=== PATIENT | female | born 1985 | race Caucasian/White ===

== ENCOUNTER 2017-02-15 13:12 | Observation (INO) | payer MEDICAID, OTHER ==
[~2017-02-15] VITALS: Ht 167.6 cm; Wt 86.0 kg
[~2017-02-15 13:12] MED LIST: IBUP600 PO; KEPP1000 PO; OXYC1SOL5 PO
[2017-02-15 13:14] VITALS: BP 167/75; PULSE 90; RESP 20; TEMP 98; O2SAT 99
--- NOTE | 2017-02-15 14:40 | PD ---
Physical Exam Date Seen by Provider: Feb 15, 2017 Time Seen by Provider: 14:38 Narrative 31 YOWF WITH C/O L FLANK PAIN FOR 6 DAYS. NO N/V. NO F/C. NO URINARY PROBLEMS. H /O ANEURISM AND APHAGIA VSS AWAITING BED PLACEMENT Data Data Last Documented VS Vital Signs Date Time Temp Pulse Resp B/P Pulse Ox O2 Delivery O2 Flow Rate FiO2 02/15/17 13:14 98.0 90 20 167/75 99 Room Air [facility] Medical Record Reviewed: Yes Supervised Visit with JUAN CARLOS: Yes Duy De La Paz Feb 15, 2017 14:40
[2017-02-15] MEDS ORDERED: SODIUM CHLORIDE 0.9% FLUSH 10 ML FLUSH IV FLUSH PRN ×2 (20:00→23:00)
--- NOTE | 2017-02-15 20:07 | PD ---
HPI Chief Complaint: Abdominal Pain Time Seen by Provider: 20:00 Travel History International Travel<30 days: No Contact w/Intl Traveler<30days: No Traveled to known affect area: No History of Present Illness HPI Patient is a 31-year-old female presenting to the urgency department with her mother for evaluation of left lower quadrant abdominal pain as well as left lower wisdom tooth pain and a cough. Patient has a history of a subarachnoid hemorrhage with aneurysm clipping, patient is aphasic, she is able to speak some but is writing things down. Her mother is also present to give history of chief complaint. Patient reports feeling very fatigued, stating she is not sleeping. She states the pain in her left lower quadrant has been ongoing for several days, she denies any nausea, vomiting, diarrhea, chest pain, shortness of breath or headache. She does report a dry cough and nasal congestion. Patient states that she has been out of her Xanax since April of last year, this helped her to sleep. 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) Psychiatric: No Reproductive: No Respiratory: No Immunizations Current: No Migraines: No Seizures: Yes Sleep Apnea: No Thyroid Disease: No Ulcer: No ?: Not LMP: 02/01/17 Past Surgical History Abdominal Surgery: No Cardiac Surgery: No Ear Surgery: No Endocrine Surgery: No Eye Surgery: No Genitourinary Surgery: No Gynecologic Surgery: Yes (tubal ligation) Neurologic Surgery: Yes (aneurysm clipping) Oral Surgery: No Thoracic Surgery: No Other Surgery: Yes (craniotomy ) Social History Alcohol Use: No Tobacco Use: Yes (10 cigarettes per day, since age 12, trying to quit) Substance Use: Yes (HX;IV DRUG ABUSE ) Allergies-Medications (Allergen,Severity, Reaction): Coded Allergies: *MDRO Multi-Drug Resistant Organism (Verified Adverse Reaction, Unknown, ) 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) Reported Meds & Prescriptions Reported Meds & Active Scripts Active No Active Prescriptions or Reported Medications Review of Systems Except as stated in HPI: all other systems reviewed are Neg General / Constitutional: Positive: Other (fatigue), No: Fever, Chills HENT: Positive: Congestion, Dental Difficulties, No: Headaches, Sore Throat Cardiovascular: No: Chest Pain or Discomfort Respiratory: Positive: Cough, No: Shortness of Breath, Wheezing Gastrointestinal: Positive: Abdominal Pain (LLQ), No: Nausea, Vomiting, Diarrhea Genitourinary: No: Dysuria, Pelvic Pain, Flank Pain Musculoskeletal: No: Myalgias Neurologic: Positive: Slurred Speech (CHRONIC DUE TO HX OF CVA), No: Weakness , Dizziness, Syncope Physical Exam Narrative GENERAL: Well-developed, well-nourished, alert female. Resting comfortably in no acute distress. SKIN: Warm and dry. HEAD: Atraumatic. Normocephalic. EYES: Pupils equal and round. No scleral icterus. No injection or drainage. ENT: No nasal bleeding or discharge. Mucous membranes pink and moist. NECK: Trachea midline. No JVD. CARDIOVASCULAR: Regular rate and rhythm. RESPIRATORY: No accessory muscle use. Clear to auscultation. Breath sounds equal bilaterally. GASTROINTESTINAL: Abdomen soft, tender to palpation left lower quadrant, nondistended. Hepatic and splenic margins not palpable. Positive bowel sounds, positive guarding, no rebound. MUSCULOSKELETAL: Extremities without clubbing, cyanosis, or edema. No obvious deformities. NEUROLOGICAL: Awake and alert. No obvious cranial nerve deficits. Motor grossly within normal limits. Five out of 5 muscle strength in the arms and legs. Mostly aphasic with slurred speech PSYCHIATRIC: Appropriate mood and affect; insight and judgment normal. Data Data Last Documented VS Vital Signs Date Time Temp Pulse Resp B/P Pulse Ox O2 Delivery O2 Flow Rate FiO2 02/15/17 13:14 98.0 90 20 167/75 99 Room Air Orders Complete Blood Count With Diff (02/15/17 19:57) Comprehensive Metabolic Panel (02/15/17 19:57) Lipase (02/15/17 19:57) Urinalysis - C+S If Indicated (02/15/17 19:57) Ct Abd/Pel W Iv Contrast(Rout) (02/15/17 19:57) Iv Access Insert/Monitor (02/15/17 19:57) Ecg Monitoring (02/15/17 19:57) Sodium Chloride 0.9% Flush (Ns Flush) (02/15/17 20:00) Ed Urine Pregnancytest Poc (02/15/17 19:57) Chest, Single Ap (02/15/17 ) Iohexol 350 Inj (Omnipaque 350 Inj) (02/15/17 21:48) Blood Culture (02/15/17 22:25) Penicillin V Potassium (Veetids) (02/15/17 22:30) Potassium Chloride Powder (Kcl Powder) (02/15/17 22:45) Place In Observation (02/15/17 ) Vital Signs (Adult) Q4H (02/15/17 22:51) Activity Oob With Assistance (02/15/17 22:51) Underlay Stitcher / Telemetry .CONTINUOUS (02/15/17 22:51) Diet Heart Healthy (02/16/17 Breakfast) Sodium Chloride 0.9% Flush (Ns Flush) (02/15/17 23:00) Sodium Chloride 0.9% Flush (Ns Flush) (02/16/17 09:00) Basic Metabolic Panel (Bmp) (02/16/17 06:00) Complete Blood Count With Diff (02/16/17 06:00) Case Management Consult (02/15/17 22:51) Naloxone Inj (Narcan Inj) (02/15/17 23:00) Echo 2d Comp W/Dopp(Routine) (02/15/17 ) Admit Order (Ed Use Only) (02/15/17 22:55) Labs Laboratory Tests Test 02/15/17 20:45 White Blood Count 10.3 TH/MM3 Red Blood Count 4.97 MIL/MM3 Hemoglobin 12.9 GM/DL Hematocrit 38.9 % Mean Corpuscular Volume 78.2 FL Mean Corpuscular Hemoglobin 25.9 PG Mean Corpuscular Hemoglobin 33.1 % Concent Red Cell Distribution Width 16.2 % Platelet Count 257 TH/MM3 Mean Platelet Volume 8.7 FL Neutrophils (%) (Auto) 71.8 % Lymphocytes (%) (Auto) 21.7 % Monocytes (%) (Auto) 5.4 % Eosinophils (%) (Auto) 0.8 % Basophils (%) (Auto) 0.3 % Neutrophils # (Auto) 7.4 TH/MM3 Lymphocytes # (Auto) 2.2 TH/MM3 Monocytes # (Auto) 0.6 TH/MM3 Eosinophils # (Auto) 0.1 TH/MM3 Basophils # (Auto) 0.0 TH/MM3 CBC Comment DIFF FINAL Differential Comment Urine Color YELLOW Urine Turbidity HAZY Urine pH 5.0 Urine Specific [place] 1.017 Urine Protein NEG mg/dL Urine Glucose (UA) NEG mg/dL Urine Ketones NEG mg/dL Urine Occult Blood MOD Urine Nitrite NEG Urine Bilirubin NEG Urine Urobilinogen LESS THAN 2.0 MG/DL Urine Leukocyte Esterase NEG Urine RBC 21 /hpf Urine WBC 5 /hpf Urine Squamous Epithelial 9 /hpf Cells Urine Bacteria RARE /hpf Urine Mucus FEW /lpf Microscopic Urinalysis Comment CULT NOT INDICATED Sodium Level 141 MEQ/L Potassium Level 3.1 MEQ/L Chloride Level 102 MEQ/L Carbon Dioxide Level 26.4 MEQ/L Anion Gap 13 MEQ/L Blood Urea Nitrogen 12 MG/DL Creatinine 0.87 MG/DL Estimat Glomerular Filtration 75 ML/MIN Rate Random Glucose 100 MG/DL Calcium Level 9.0 MG/DL Total Bilirubin 0.2 MG/DL Aspartate Amino Transf 12 U/L (AST/SGOT) Alanine Aminotransferase 27 U/L (ALT/SGPT) Alkaline Phosphatase 55 U/L Total Protein 7.1 GM/DL Albumin 3.6 GM/DL Lipase 80 U/L [facility] Medical Decision Making Medical Screen Exam Complete: Yes Emergency Medical Condition: Yes Interpretation(s) Vital Signs Date Time Temp Pulse Resp B/P Pulse Ox O2 Delivery O2 Flow Rate FiO2 02/15/17 13:14 98.0 90 20 167/75 99 Room Air Differential Diagnosis Diverticulitis versus colitis versus urinary tract infection versus obstruction versus other Narrative Course Patient is a 31-year-old female presented to emergency from with several medical complaints including needing her wisdom teeth out, cough, fatigue, insomnia, left lower quadrant abdominal pain. Patient does not have a primary care provider at this time. Patient has a complex medical history, medical records reviewed, she has a history of IV drug use, subarachnoid hemorrhage, mitral valve regurgitation, congestive heart failure. Her vital signs are stable, she is tender on exam to the left lower quadrant. Patient was advised that she will need to follow up with a dentist or oral surgeon to have her wisdom teeth extracted. Labs and imaging ordered and pending. Chest x-ray shows no acute disease. Care of patient transferred to my attending physician at the end of my shift. He will determine patient's disposition. Scripts No Active Prescriptions or Reported Meds Sagrario Langford Feb 15, 2017 20:07
--- NOTE | 2017-02-15 20:24 | RADRPT ---
EXAM DATE/TIME: 02/15/2017 20:08 [facility] COMPARISON: CHEST SINGLE AP, September 28, 2015, 10:21. INDICATIONS : Cough. MEDICAL HISTORY : Aphasia, endocarditis. SURGICAL HISTORY : Tracheostomy. ENCOUNTER: Initial ACUITY: 1 year PAIN SCORE: 0/10 LOCATION: Bilateral chest FINDINGS: The lungs are clear without infiltrate, nodule, or mass. There is no appreciable pleural effusion fo r technique. Heart and mediastinum are unremarkable. CONCLUSION: No acute cardiopulmonary disease. Jody Richter MD on February 15, 2017 at 20:21 Board Certified Radiologist. This report was verified electronically.
[2017-02-15 21:02] LABS: AUTOMATED NEUTROPHIL # 7.4 TH/MM3 (1.8-7.7); BASOPHIL % 0.3 % (0.0-2.0); EOSINOPHIL # 0.1 TH/MM3 (0-0.4); EOSINOPHIL % 0.8 % (0.0-4.0); HEMATOCRIT 38.9 % (35.0-46.0); HEMO FLAGS DIFF FINAL; LYMPH % 21.7 % (9.0-44.0); LYMPHOCYTE # 2.2 TH/MM3 (1.0-4.8); MEAN CELL VOLUME 78.2 FL (80.0-100.0); MEAN CORPUSCULAR HEMOGLOBIN 25.9 PG (27.0-34.0); MEAN CORPUSCULAR HGB CONC 33.1 % (32.0-36.0); MONO % 5.4 % (0.0-8.0); NEUT % 71.8 % (16.0-70.0); PLATELET COUNT 257 TH/MM3 (150-450); RED BLOOD COUNT 4.97 MIL/MM3 (4.00-5.30); RED CELL DISTRIBUTION WIDTH 16.2 % (11.6-17.2); WHITE BLOOD COUNT 10.3 TH/MM3 (4.0-11.0)
[2017-02-15 21:11] LABS: BACTERIA, URINE RARE /hpf; BLOOD, URINE MOD (NEG); COMMENT (UR) CULT NOT INDICATED; CULTURE IF INDICATED CULT NOT INDICATED; GLUCOSE,URINE NEG (NEG); KETONE, URINE NEG (NEG); MUCUS URINE FEW /lpf (OCC); NITRITE,URINE NEG (NEG); SQUAMOUS EPITHELIAL CELL URINE 9 /hpf (0-5); URINE COLOR YELLOW (YELLW/STRAW)
[2017-02-15 21:19] LABS: ANION GAP 13 MEQ/L (5-15); AST (GOT) 12 U/L (15-37); BICARBONATE 26.4 MEQ/L (21.0-32.0); BLOOD UREA NITROGEN 12 MG/DL (7-18); CHLORIDE 102 MEQ/L (98-107); GLOMERULAR FILTRATION RATE 75 ML/MIN (>89); POTASSIUM 3.1 MEQ/L (3.5-5.1); SODIUM (NA) 141 MEQ/L (136-145)
[2017-02-15 21:22] LABS: ALKALINE PHOSPHATASE 55 U/L (45-117); ALT (GPT) 27 U/L (10-53); TOTAL BILIRUBIN ADULT 0.2 MG/DL (0.2-1.0)
[2017-02-15] MEDS ORDERED: IOHEXOL 350 MG/ML 10 ML VIAL (for RAD DIAG) IV ONE (21:48)
--- NOTE | 2017-02-15 21:57 | RADRPT ---
EXAM DATE/TIME: 02/15/2017 21:29 [facility] COMPARISON: No previous studies available for comparison. INDICATIONS : Left lower qaudrant pain past 6 days. IV CONTRAST: 96 cc Omnipaque 350 (iohexol) IV ORAL CONTRAST: No oral contrast ingested. RADIATION DOSE: 9.96 CTDIvol (mGy) MEDICAL HISTORY : Aneurysm, intracranial. Cardiovascular disease SAH SURGICAL HISTORY : Tubal ligation. Discectomy, cervical. ENCOUNTER: Initial ACUITY: 4 - 6 days PAIN SCALE: 4/10 LOCATION: Left lower quadrant TECHNIQUE: Volumetric scanning of the abdomen and pelvis was performed. Using automated exposure control and ad justment of the mA and/or kV according to patient size, radiation dose was kept as low as reasonably achievable to obtain optimal diagnostic quality images. FINDINGS: CT Abdomen: The spleen is enlarged measuring 13.2 cm in craniocaudal dimension with geographic areas of diminished enhancement towards the periphery of the spleen in multiple areas. Possibility of multi ple splenic infarctions should be entertained in the appropriate clinical setting. The splenic artery is also somewhat prominent in size without any evidence for thrombus within the portal vein or the s plenic vein. The liver, pancreas, kidneys, adrenals are unremarkable. There is no evidence for any ap preciable pathological adenopathy, free fluid, or bowel obstruction. CT pelvis: There is no evidence for mass, abscess formation, or any significant adenopathy within the pelvis. There is moderate amount of stool throughout the colon. CONCLUSION: Enlarged spleen with prominent splenic vein and possibility of multiple splenic infar ctions should be entertained. Jody Richter MD on February 15, 2017 at 21:51 Board Certified Radiologist. This report was verified electronically.
[2017-02-15] MEDS ORDERED: PENICILLIN V POTASSIUM 500 MG TAB PO ONE (22:30)
[2017-02-15] MEDS ORDERED: POTASSIUM CHLORIDE 20 MEQ PWD PACKET PO ONE (22:45)
--- NOTE | 2017-02-15 22:55 | PD ---
Data Data Last Documented VS Vital Signs Date Time Temp Pulse Resp B/P Pulse Ox O2 Delivery O2 Flow Rate FiO2 02/15/17 13:14 98.0 90 20 167/75 99 Room Air Orders Complete Blood Count With Diff (02/15/17 19:57) Comprehensive Metabolic Panel (02/15/17 19:57) Lipase (02/15/17 19:57) Urinalysis - C+S If Indicated (02/15/17 19:57) Ct Abd/Pel W Iv Contrast(Rout) (02/15/17 19:57) Iv Access Insert/Monitor (02/15/17 19:57) Ecg Monitoring (02/15/17 19:57) Sodium Chloride 0.9% Flush (Ns Flush) (02/15/17 20:00) Ed Urine Pregnancytest Poc (02/15/17 19:57) Chest, Single Ap (02/15/17 ) Iohexol 350 Inj (Omnipaque 350 Inj) (02/15/17 21:48) Blood Culture (02/15/17 22:25) Penicillin V Potassium (Veetids) (02/15/17 22:30) Potassium Chloride Powder (Kcl Powder) (02/15/17 22:45) Labs Laboratory Tests Test 02/15/17 20:45 White Blood Count 10.3 TH/MM3 Red Blood Count 4.97 MIL/MM3 Hemoglobin 12.9 GM/DL Hematocrit 38.9 % Mean Corpuscular Volume 78.2 FL Mean Corpuscular Hemoglobin 25.9 PG Mean Corpuscular Hemoglobin 33.1 % Concent Red Cell Distribution Width 16.2 % Platelet Count 257 TH/MM3 Mean Platelet Volume 8.7 FL Neutrophils (%) (Auto) 71.8 % Lymphocytes (%) (Auto) 21.7 % Monocytes (%) (Auto) 5.4 % Eosinophils (%) (Auto) 0.8 % Basophils (%) (Auto) 0.3 % Neutrophils # (Auto) 7.4 TH/MM3 Lymphocytes # (Auto) 2.2 TH/MM3 Monocytes # (Auto) 0.6 TH/MM3 Eosinophils # (Auto) 0.1 TH/MM3 Basophils # (Auto) 0.0 TH/MM3 CBC Comment DIFF FINAL Differential Comment Urine Color YELLOW Urine Turbidity HAZY Urine pH 5.0 Urine Specific [place] 1.017 Urine Protein NEG mg/dL Urine Glucose (UA) NEG mg/dL Urine Ketones NEG mg/dL Urine Occult Blood MOD Urine Nitrite NEG Urine Bilirubin NEG Urine Urobilinogen LESS THAN 2.0 MG/DL Urine Leukocyte Esterase NEG Urine RBC 21 /hpf Urine WBC 5 /hpf Urine Squamous Epithelial 9 /hpf Cells Urine Bacteria RARE /hpf Urine Mucus FEW /lpf Microscopic Urinalysis Comment CULT NOT INDICATED Sodium Level 141 MEQ/L Potassium Level 3.1 MEQ/L Chloride Level 102 MEQ/L Carbon Dioxide Level 26.4 MEQ/L Anion Gap 13 MEQ/L Blood Urea Nitrogen 12 MG/DL Creatinine 0.87 MG/DL Estimat Glomerular Filtration 75 ML/MIN Rate Random Glucose 100 MG/DL Calcium Level 9.0 MG/DL Total Bilirubin 0.2 MG/DL Aspartate Amino Transf 12 U/L (AST/SGOT) Alanine Aminotransferase 27 U/L (ALT/SGPT) Alkaline Phosphatase 55 U/L Total Protein 7.1 GM/DL Albumin 3.6 GM/DL Lipase 80 U/L MDM Supervised Visit with JUAN CARLOS: Yes Narrative Course I, Dr. Tipton, have reviewed the advance practice practitioner's documentation and am in agreement, met with the patient face to face, made the diagnosis, and the medical decision making was done by me. See her note for further details. Briefly this is a 31-year-old female with history of IVDU, CVA, here for evaluation of dental pain and left abdominal pain. Patient has poor dentition. No obvious dental abscess. No trismus. No drooling or stridor. On abdominal exam there is left mid and left upper quadrant tenderness without peritoneal signs. Vital signs show heart rate 90, blood pressure 167/75, pulse ox 99% on room air, temp of 98F. CBC is essentially unremarkable. CMP is remarkable for potassium 3.1 which was replaced orally, otherwise unremarkable. Lipase is 80. UA shows moderate occult blood, not suggestive of UTI. CT abdomen pelvis: CONCLUSION: Enlarged spleen with prominent splenic vein and possibility of multiple splenic infarctions should be entertained. Patient has history of IVDU. These possible splenic infarcts could be septic emboli. Blood cultures obtained. She is afebrile. She does not have an elevated WBC count. She will be admitted for further treatment and evaluation. Case discussed with hospitalist Dr. Puentes who will admit the patient to her service. Diagnosis Primary Impression: Splenic infarct Additional Impression: Dental caries Admitting Information Admitting Physician Requests: Observation Scripts No Active Prescriptions or Reported Meds Parminder Tipton MD Feb 15, 2017 22:54
[2017-02-15] MEDS ORDERED: NALOXONE HCL 0.4 MG/ML AMP IV PRN (23:00)
[2017-02-15 23:30] VITALS: BP 142/75; PULSE 69; RESP 16; TEMP 99.1; O2SAT 99
[2017-02-16] VITALS (7 sets, daily range): BP systolic 112–127; BP diastolic 58–78; PULSE 60–79; RESP 16–18; TEMP 97.6–98.7; O2SAT 98–99
[2017-02-16 08:06] LABS: AUTOMATED NEUTROPHIL # 4.3 TH/MM3 (1.8-7.7); BASOPHIL # 0.1 TH/MM3 (0-0.2); BASOPHIL % 0.8 % (0.0-2.0); EOSINOPHIL # 0.1 TH/MM3 (0-0.4); EOSINOPHIL % 1.3 % (0.0-4.0); HEMATOCRIT 38.7 % (35.0-46.0); HEMO FLAGS DIFF FINAL; LYMPH % 31.2 % (9.0-44.0); LYMPHOCYTE # 2.2 TH/MM3 (1.0-4.8); MEAN CELL VOLUME 77.8 FL (80.0-100.0); MEAN CORPUSCULAR HEMOGLOBIN 25.9 PG (27.0-34.0); MEAN CORPUSCULAR HGB CONC 33.3 % (32.0-36.0); MONO % 6.6 % (0.0-8.0); NEUT % 60.1 % (16.0-70.0); PLATELET COUNT 236 TH/MM3 (150-450); RED BLOOD COUNT 4.97 MIL/MM3 (4.00-5.30); RED CELL DISTRIBUTION WIDTH 15.9 % (11.6-17.2); WHITE BLOOD COUNT 7.2 TH/MM3 (4.0-11.0)
[2017-02-16 08:28] LABS: BICARBONATE 23.3 MEQ/L (21.0-32.0); POTASSIUM 3.9 MEQ/L (3.5-5.1)
[2017-02-16] MEDS ORDERED: SODIUM CHLORIDE 0.9% FLUSH 10 ML FLUSH IV FLUSH SCH (09:00)
--- NOTE | 2017-02-16 11:21 | HHI.HP ---
[facility] No Primary Care Physician Admission Diagnosis splenic infarct, dental caries Diagnoses: Chief Complaint: abdominal pain, cough Travel History International Travel<30 Days: No Contact w/Intl Traveler <30 Da: No Traveled to Known Affected Are: No History of Present Illness 31-year-old female with history of subarachnoid hemorrhage s/p clipping with aphasia, seizures, hepatitis C, prior IVDU and endocarditis now clean 2 years, presents with complaints of left-sided abdominal pain and cough. The patient's mother is at bedside who provides most of the history as the patient is mostly aphasic but is able to answer yes, no, and 1-2 word answers. She reports for over 2 weeks now that patient hasn't felt well. She has felt fatigued, not sleeping well. She started complaining of intermittent left sided abdominal pain however denies any recent fevers or chills, nausea or vomiting, diarrhea or constipation. She does report a dry nonproductive cough and nasal congestion over the past 6 days. Denies any chest pain or shortness of breath. She has no other medical complaints at this time. Review of Systems Constitutional: DENIES: Fever Except as stated in HPI: all other systems reviewed are Neg Past Family Social History Past Medical History Endocarditis in 2015 Subarachnoid hemorrhage Seizures Miscarriage Hepatitis C Past Surgical History Aneurysm clipping and coiling with craniotomy, 2 years ago at [facility] Tubal ligation Reported Medications Denies taking any medications on a regular basis. 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 denies) Active Ordered Medications Current Medications Medications (Trade) Dose Ordered Sig/Christopher Route Start Time Stop Time Status Last Admin (NS Flush) 2 ml UNSCH PRN IV FLUSH 02/15/17 23:00 (NS Flush) 2 ml BID IV FLUSH 02/16/17 09:00 02/16/17 09:00 (Narcan Inj) 0.4 mg UNSCH PRN IV 02/15/17 23:00 Family History Denies any family history of cancer, stroke, heart disease. Social History Tobacco use- smokes 3 cigarettes daily Denies any recent alcohol or illicit drug use Prior IVDU, for 5-6years, clean for 2.5years Physical Exam Vital Signs Vital Signs Date Time Temp Pulse Resp B/P Pulse Ox O2 Delivery O2 Flow Rate FiO2 02/16/17 08:09 77 02/16/17 08:05 97.6 66 16 113/67 98 02/16/17 06:16 79 18 127/78 99 02/16/17 02:45 71 02/16/17 01:46 98.7 60 18 118/74 99 02/15/17 23:30 99.1 69 16 142/75 99 Room Air 02/15/17 13:14 98.0 90 20 167/75 99 Room Air Physical Exam GENERAL: Well-developed, well-nourished middle aged female patient in [facility]. Sitting upright in bed. Mother at bedside. SKIN: Warm and dry. HEAD: Atraumatic. Normocephalic. EYES: Pupils equal and round. No scleral icterus. No injection or drainage. ENT: No nasal bleeding or discharge. Mucous membranes pink and moist. NECK: Trachea midline. CARDIOVASCULAR: Regular rate and rhythm. No murmur appreciated. RESPIRATORY: No accessory muscle use. Clear to auscultation. Breath sounds equal bilaterally. GASTROINTESTINAL: Abdomen soft, non-tender, nondistended. Normoactive bowel sounds x4. MUSCULOSKELETAL: Extremities without clubbing, cyanosis, or edema. No obvious deformities. NEUROLOGICAL: Awake and alert. No obvious cranial nerve deficits. Motor grossly within normal limits. Five out of 5 muscle strength in the arms and legs. Aphasic at baseline. PSYCHIATRIC: Appropriate mood and affect; insight and judgment normal. Laboratory Laboratory Tests Test 02/15/17 02/16/17 02/16/17 20:45 07:20 07:40 White Blood Count 10.3 7.2 Red Blood Count 4.97 4.97 Hemoglobin 12.9 12.9 Hematocrit 38.9 38.7 Mean Corpuscular Volume 78.2 77.8 Mean Corpuscular Hemoglobin 25.9 25.9 Mean Corpuscular Hemoglobin 33.1 33.3 Concent Red Cell Distribution Width 16.2 15.9 Platelet Count 257 236 Mean Platelet Volume 8.7 8.4 Neutrophils (%) (Auto) 71.8 60.1 Lymphocytes (%) (Auto) 21.7 31.2 Monocytes (%) (Auto) 5.4 6.6 Eosinophils (%) (Auto) 0.8 1.3 Basophils (%) (Auto) 0.3 0.8 Neutrophils # (Auto) 7.4 4.3 Lymphocytes # (Auto) 2.2 2.2 Monocytes # (Auto) 0.6 0.5 Eosinophils # (Auto) 0.1 0.1 Basophils # (Auto) 0.0 0.1 CBC Comment DIFF FINAL DIFF FINAL Differential Comment Urine Color YELLOW Urine Turbidity HAZY Urine pH 5.0 Urine Specific [place] 1.017 Urine Protein NEG Urine Glucose (UA) NEG Urine Ketones NEG Urine Occult Blood MOD Urine Nitrite NEG Urine Bilirubin NEG Urine Urobilinogen LESS THAN 2.0 Urine Leukocyte Esterase NEG Urine RBC 21 Urine WBC 5 Urine Squamous Epithelial 9 Cells Urine Bacteria RARE Urine Mucus FEW Microscopic Urinalysis Comment CULT NOT INDICATED Sodium Level 141 142 Potassium Level 3.1 3.9 Chloride Level 102 110 Carbon Dioxide Level 26.4 23.3 Anion Gap 13 9 Blood Urea Nitrogen 12 12 Creatinine 0.87 0.69 Estimat Glomerular Filtration 75 99 Rate Random Glucose 100 79 Calcium Level 9.0 8.5 Total Bilirubin 0.2 Aspartate Amino Transf 12 (AST/SGOT) Alanine Aminotransferase 27 (ALT/SGPT) Alkaline Phosphatase 55 Total Protein 7.1 Albumin 3.6 Lipase 80 Date/Time Procedure Status Source Growth 02/15/17 22:50 Aerobic Blood Culture Received Blood Peripheral Pending 02/15/17 22:50 Anaerobic Blood Culture Received Blood Peripheral Pending 02/15/17 22:30 Aerobic Blood Culture - Preliminary Resulted Blood Peripheral NO GROWTH IN 1 DAY 02/15/17 22:30 Anaerobic Blood Culture - Preliminary Resulted Blood Peripheral NO GROWTH IN 1 DAY Result Diagram: 02/16/17 0740 02/16/17 0720 Imaging Last Impressions Abdomen/Pelvis CT 02/15/171956 Signed Impressions: Service Date/Time: Wednesday, February 15, 2017 21:29 - CONCLUSION: Enlarged spleen with prominent splenic vein and possibility of multiple splenic infarctions should be entertained. Jody Richter MD Chest X-Ray 02/15/17 0000 Signed Impressions: Service Date/Time: Wednesday, February 15, 2017 20:08 - CONCLUSION: No acute cardiopulmonary disease. Jody Richter MD Assessment and Plan Assessment and Plan 31-year-old female with history of subarachnoid hemorrhage s/p clipping with aphasia, seizures, hepatitis C, prior IVDU and endocarditis now clean 2 years, presents with complaints of left-sided abdominal pain and cough. Left Sided Abdominal Pain: unclear etiology. CT abdomen/pelvis images reviewed , showed enlarged pain with prominent splenic vein and possibility of multiple splenic infarction should be entertained. Discussed over the phone with hematology, doubt true infarcts, recommended peripheral blood smear by pathology. Afebrile, no leukocytosis, blood cultures with NGTD. Patient tolerating oral intake, no nausea/vomiting/diarrhea. Plan to discharge. Cough/Congestion: suspect viral illness. CXR images reviewed by me, no acute findings. Tylenol prn. Outpatient f/up with PCP. Dental Caries: recommended outpatient f/up with dentist for extraction. Will discharge on Pen V K 500mg q8h x 10days. Hx of Endocarditis: Blood cultures with NGTD. No complains of chest pain. No recent IVDU. Afebrile, no leukocytosis. Outpatient f/up. Hx of SAH with Aphasia: chronic, stable. Outpatient f/up. Hepatitis C: LFTs wnl. Outpatient f/up with GI. DVT Prophylaxis: teds/SCDs Written by Opal Payne, acting as scribe for Dr. Parker on 02/16/17 at 11:21. All or portions of this note were transcribed by Opal mauro PA. I , Dr. Alex Parker personally performed the history, physical exam, and medical decision making; and confirmed the accuracy of the information in the transcribed note. Authenticated by Dr. Alex Parker on 02/17/17 at 00:11. Discussed Condition With Patient, Patient's mother at bedside, CD[employer] global marketing coordinator Planning Discharge patient to home Condition on discharge: Improved Regular Diet as tolerated Ad Farzana activity Rx written: Penicillin V K 500mg q8h [id number] Follow-up with primary care physician, dentist, and hematology if needed Opal Payne PA-C Feb 16, 2017 11:21 Chang Parker DO Feb 17, 2017 00:12
--- NOTE | 2017-02-16 14:03 | HHI.DCPOC ---
Discharge Care Plan Diagnosis: (1) Abdominal pain Goals to Promote Your Health * To prevent worsening of your condition and complications * To maintain your health at the optimal level Directions to Meet Your Goals Take your medications as prescribed Follow your dietary instruction Follow activity as directed Keep your appointments as scheduled Take your immunizations and boosters as scheduled If your symptoms worsen call your PCP, if no PCP go to Urgent Care Center or Emergency Room Smoking is Dangerous to Your Health. Avoid second hand smoke Call the 24-hour hour crisis hotline for domestic abuse at Opla Payne PA-C Feb 16, 2017 14:03
[2017-02-16] MEDS ORDERED: PENI500T PO (14:20)
[2017-02-16] MEDS ORDERED: PENICILLIN V POTASSIUM 500 MG TAB PO SCH (15:00)
--- NOTE | 2017-02-16 16:36 | EC ---
Study Study Date:02/16/2017 STUDY CONCLUSIONS SUMMARY - Left ventricle: The cavity size was normal. Wall thickness was normal. Systolic function was normal. The estimated ejection fraction was in the range of 55% to 60%. Wall motion was normal; there were no regional wall motion abnormalities. - Aortic valve: Valve area: 2.27cm^2 (Vmax). - Mitral valve: Severe regurgitation. - Tricuspid valve: Mild regurgitation. - Pulmonary arteries: PA peak pressure: 33mm Hg (S). If LV function is below 40, please consider prescribing an ACEI or ARB or document rationale for non-use. PROCEDURE DATA STUDY STATUS: Elective. Procedure: Transthoracic echocardiography. Image quality was good. Scanning was performed from the parasternal, apical, and subcostal acoustic windows. Study completion: The patient tolerated the procedure well. Transthoracic echocardiography. M-mode, complete 2D, complete spectral Doppler, and color Doppler. Height: Height: 66in. Weight: Weight: 188.6lb. Body mass index: BMI: 30.5kg/m^2. Body surface area: BSA: 1.95m^2. Patient status: Inpatient. CARDIAC ANATOMY LEFT VENTRICLE: The cavity size was normal. Wall thickness was normal. Systolic function was normal. The estimated ejection fraction was in the range of 55% to 60%. Wall motion was normal; there were no regional wall motion abnormalities. AORTIC VALVE: Trileaflet; normal thickness leaflets. Doppler: Transvalvular velocity was within the normal range. There was no stenosis. No regurgitation. Valve area: 2.27cm^2 (Vmax). Indexed valve area: 1.16cm^2/m^2 (Vmax). Mean gradient: 4mm Hg (S). AORTA: Aortic root: The aortic root was normal in size. MITRAL VALVE: Structurally normal valve. Doppler: Transvalvular velocity was within the normal range. There was no evidence for stenosis. Severe regurgitation. Peak gradient: 6mm Hg (D). LEFT ATRIUM: The atrium was normal in size. RIGHT VENTRICLE: The cavity size was normal. Wall thickness was normal. PULMONIC VALVE: Doppler: Transvalvular velocity was within the normal range. There was no evidence for stenosis. No regurgitation. TRICUSPID VALVE: Structurally normal valve. Doppler: Transvalvular velocity was within the normal range. Mild regurgitation. PULMONARY ARTERY: The main pulmonary artery was normal-sized. Systolic pressure was within the normal range. RIGHT ATRIUM: The atrium was normal in size. PERICARDIUM: There was no pericardial effusion. SYSTEMIC VEINS: Inferior vena cava: The vessel was normal in size. Patient weight: 188.6lb _Ejection fraction:_ 65-75% _Fractional shortening:_ 32% up to 5Kg 5-11.5Kg 11.6-22.9Kg 23-45Kg 45-57Kg Aortic Root 7-13 <17 13-22 17-27 17-27 LA diam 6-13 <23 24-38 33-47 37-40 RVID 10-17 7-15 7-15 7-18 8-17 LVIDd 12-22 <32 24-38 33-47 37-40 LVPW 2-4 3-6 5-7 6-8 7-8 IVS 2-4 3-6 5-7 6-8 7-8 BASIC MEASUREMENTS ADULT NORMAL Left ventricle LV internal dimension, ED, chordal *52.9 mm 43-52 level, PLAX LV internal dimension, ES, chordal 37.2 mm 23-38 level, PLAX Fractional shortening, chordal level, 30 % >29 PLAX LV posterior wall thickness, ED 7.72 mm IVS/LVPW ratio, ED 1.05 <1.3 Ventricular septum Septal thickness, ED 8.09 mm Aortic valve Leaflet separation 17 mm 15-26 BASIC MEASUREMENTS ADULT NORMAL Aortic valve Leaflet separation 17 mm 15-26 Aorta Root diameter, ED 25 mm 20-37 Left atrium Anterior-posterior dimension, ES 33 mm 19-40 Anterior-posterior dimension index, ES 1.69 cm/m^2 <2.2 LA/aortic root ratio 1.32 DOPPLER MEASUREMENTS ADULT NORMAL Main pulmonary artery Pressure, S *33 mm Hg =30 Aortic valve Peak velocity, S 145 cm/s Mean velocity, S 94.1 cm/s VTI, S 29.4 cm Mean gradient, S 4 mm Hg Valve area, Vmax 2.27 cm^2 Valve area index, Vmax 1.16 cm^2/m^2 Mitral valve Peak E-wave velocity 127 cm/s Peak A-wave velocity 108 cm/s Deceleration time *299 ms 150-230 Peak gradient, D 6 mm Hg Peak E/A ratio 1.2 Maximal regurgitant velocity 564 cm/s Tricuspid valve Regurgitant peak velocity 186 cm/s Peak RV-RA gradient, S 14 mm Hg Maximal regurgitant velocity 186 cm/s Systemic veins Estimated CVP 10 mm Hg Right ventricle RV pressure, S *37 mm Hg <30 Pulmonic valve Peak velocity, S 106 cm/s LEGEND: Mean values are shown as u=mean value. Asterisk (*) hdz values outside specified normal range. Prepared and signed by Jose Joe [id number]
[2017-03-11] MEDS ORDERED: ZOLO25TA PO (10:49)
[2017-03-18] MEDS ORDERED: AMOX500T PO (16:02)
[2017-03-30] MEDS ORDERED: HYDR-3133 PO (12:07)
[2017-03-30] MEDS ORDERED: ERGO1CAP30 PO (12:07)
[2017-04-23] MEDS ORDERED: AMOX500T PO (10:24)
[2017-05-06] MEDS ORDERED: ZOLO25TA PO (10:24)
== END 2017-02-16 18:37 | disposition home or self-care (01) ==
LOC: NEPA 13:12 → NEDA 22:56 → NEPHCDU 02-16 01:18
PROVIDERS: ADMIT Hospitalist; ATTEND Hospitalist
DX: R10.32 Left lower quadrant pain (principal); K02.9 Dental caries, unspecified; R47.01 Aphasia; F90.9 Attention-deficit hyperactivity disorder, unspecified type; I50.9 Heart failure, unspecified; B19.20 Unspecified viral hepatitis C without hepatic coma; F17.210 Nicotine dependence, cigarettes, uncomplicated; Z86.73 Personal history of transient ischemic attack (TIA), and cerebral infarction without residual deficits; Z88.8 Allergy status to other drugs, medicaments and biological substances
CPT/HCPCS: 71010; 74177; 80048; 80053; 81001; 83690; 84703; 85025; 85060; 87040; 93306; 99285; G0378; Q9967

== ENCOUNTER 2017-07-28 11:50 | Emergency (ER) | payer MEDICAID, OTHER ==
[~2017-07-28] VITALS: Ht 162.6 cm; Wt 81.5 kg
[~2017-07-28 11:50] MED LIST changes: +ERGO1CAP30 PO; +HYDR-3133 PO; -IBUP600 PO; -KEPP1000 PO; -OXYC1SOL5 PO; +ZOLO25TA PO
[2017-07-28 11:52] VITALS: BP 140/100; PULSE 104; RESP 20; TEMP 98.4; O2SAT 99
[2017-07-28] MEDS ORDERED: AUGM875T3 PO (12:14)
--- NOTE | 2017-07-28 12:15 | PD ---
HPI . needs antibiotics rx for tooth infection Chief Complaint: Medication Refill Request Time Seen by Provider: 12:11 Travel History International Travel<30 days: No Contact w/Intl Traveler<30days: No Traveled to known affect area: No History of Present Illness HPI 32-year-old female here requesting a refill on antibiotics. Apparently patient was seen at [facility] and given a prescription for antibiotics, but she lost them. She has an infection on her lower teeth on the rights side. She tried to call the dentist, but tells me they're closed. She denies any fever or chills. PFSH Past Medical History ADHD: Yes Arthritis: No Asthma: No Autoimmune Disease: No Heart Rhythm Problems: No Cancer: No High Cholesterol: No Chest Pain: No Congestive Heart Failure: Yes COPD: No Cerebrovascular Accident: Yes Diabetes: No Diminished Hearing: No Endocrine: No GERD: No Genitourinary: No Headaches: Yes Hiatal Hernia: No Immune Disorder: No Insomnia: Yes Musculoskeletal: No Neurologic: Yes Psychiatric: No Reproductive: No Respiratory: No Immunizations Current: No Migraines: No Seizures: Yes Sleep Apnea: No Thyroid Disease: No Ulcer: No ?: Unknown Past Surgical History Abdominal Surgery: No Cardiac Surgery: No Ear Surgery: No Endocrine Surgery: No Eye Surgery: No Genitourinary Surgery: No Gynecologic Surgery: Yes (tubal ligation) Neurologic Surgery: Yes (aneurysm clipping) Oral Surgery: No Thoracic Surgery: No Other Surgery: Yes (craniotomy ) Social History Alcohol Use: Yes Tobacco Use: Yes Substance Use: No Allergies-Medications (Allergen,Severity, Reaction): Coded Allergies: *MDRO Multi-Drug Resistant Organism (Verified Adverse Reaction, Unknown, ) 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) Reported Meds & Prescriptions Reported Meds & Active Scripts Active Zoloft (Sertraline HCl) 25 Mg Tab 25 Mg PO DAILY Hydroxyzine HCl 25 Mg Tab 25 Mg PO HS Ergocalciferol 50,000 Unit Cap 50,000 Units PO Q7D Review of Systems General / Constitutional: No: Fever Eyes: No: Visual changes HENT: Positive: Dental Difficulties, No: Headaches Cardiovascular: No: Chest Pain or Discomfort Respiratory: No: Shortness of Breath Gastrointestinal: No: Abdominal Pain Genitourinary: No: Dysuria Musculoskeletal: No: Pain Skin: No Rash Neurologic: No: Weakness Psychiatric: No: Depression Endocrine: No: Polydipsia Hematologic/Lymphatic: No: Easy Bruising Physical Exam Narrative GENERAL: AAO x 3, no acute distress, Well-nourished, well-developed patient. SKIN: Warm and dry. No visible rashes or bruising. no facial edema or erythema HEAD: Normocephalic and atraumatic. EYES: No scleral icterus. No injection or drainage. EOM intact, PERRLA ENT: No nasal drainage noted. Mucous membranes pink. Airway patent. left lower jaw wisdom tooth cracked and gum is slightly swollen with slight purulent drainage, no fluid collection for incision and drainage NECK: Supple, trachea midline. No JVD. CARDIOVASCULAR: Regular rate and rhythm without murmurs, gallops, or rubs. RESPIRATORY: Breath sounds equal bilaterally. No accessory muscle use. No rhonchi or rales. GASTROINTESTINAL: visual inspection normal EXTREMITIES: No cyanosis or edema. BACK: No obvious deformity. NEURO: CN II-12 intact, PSYCH: AAO x 3, normal affect. Data Data Last Documented VS Vital Signs Date Time Temp Pulse Resp B/P (MAP) Pulse Ox O2 Delivery O2 Flow Rate FiO2 07/28/17 11:52 98.4 104 20 140/100 (113) 99 Room Air MDM Medical Decision Making Medical Screen Exam Complete: Yes Emergency Medical Condition: Yes Medical Record Reviewed: Yes Differential Diagnosis Dentalgia, cracked with some tooth, oral abscess Narrative Course 32-year-old female here with a cracked was continued on the left lower jaw. It appears to be infected. I provided her with a prescription for Augmentin. Recommend follow-up with dentist Diagnosis Primary Impression: Dental caries Patient Instructions: General Instructions Additional Instructions: Please see a dentist as soon as possible. Med/Other Pt SpecificInfo: Prescription(s) given Scripts Amoxicillin-Clavulanate (Augmentin) 875-125 Mg Tab 1 TAB PO BID for Infection, #20 TAB 0 Refills Prov: Tayler Ramirez 07/28/17 Disposition: 01 DISCHARGE HOME Condition: Stable Tayler Ramirez Jul 28, 2017 12:14
== END 2017-07-29 13:15 | disposition home or self-care (01) ==
LOC: EDTENT 11:50
DX: K02.9 Dental caries, unspecified (principal); K04.7 Periapical abscess without sinus; Z72.0 Tobacco use
CPT/HCPCS: 99281